=== PATIENT | female | born 1945 | race Native Hawaiian/Other Pacific Islander ===

== ENCOUNTER 2017-04-15 11:50 | Outpatient (CLI) | payer OTHER ==
[~2017-04-15 11:50] MED LIST: ACIPHEX20 MG OR; ASA LO-DOSE81 MG OR; BIOTIN1000 MCG PO; CIPRO500 MG PO; CORTISPORIN11 EX; CRESTOR5 MG PO; DICY20TA34 PO; FURO20TA67 PO; HCTZ OR; INDERAL LA PO; LEVO0.0723 PO; MELOXICAM7.5 MG PO; METFORMIN ER1000 MG PO; TRAVATAN Z0.004 % OP; [UNRECOGNIZED DRUG - OTHER] OR
== END 2017-04-15 13:00 | disposition home or self-care (01) ==
LOC: CT 11:50
DX: R31.9 Hematuria, unspecified (principal)